=== PATIENT | male | born 1965 | race Caucasian/White ===

== ENCOUNTER 2021-11-04 16:53 | Inpatient (IN) | payer MEDICARE, MEDICAID ==
[~2021-11-04] VITALS: Ht 188 cm; Wt 96.6 kg
[2021-11-04 17:58] LABS: EOSINOPHILS % (AUTO) 8.5 % (1.0-6.0); HEMATOCRIT 36.5 % (41-53); HEMOGLOBIN 12.5 g/dL (13.5-17.5); LYMPHOCYTES # (AUTO) 1.4 K/uL (1.0-4.8); LYMPHOCYTES % (AUTO) 23.9 % (22.0-44.0); MEAN CORPUSCULAR HEMOGLOBIN 33.1 pg (26.0-34.0); MEAN CORPUSCULAR HGB CONC 34.1 G/dL (31.0-37.0); MEAN CORPUSCULAR VOLUME 97 fL (80-100); MONOCYTES # (AUTO) 0.4 K/uL (0.1-1.0); MONOCYTES % (AUTO) 6.2 % (2.0-9.0); NEUTROPHILS # (AUTO) 3.5 K/uL (1.8-7.7); NEUTROPHILS % (AUTO) 60.4 % (40.0-70.0); PLATELET COUNT (AUTO) 217 K/uL (150-450); RED BLOOD CELL COUNT(AUTO) 3.77 MIL/uL (4.50-5.90); RED CELL DISTRIBUTION WIDTH 17.2 % (11.5-14.5)
[2021-11-04 18:00] LABS: ANION GAP 7 mmol/L (8-16); CALCIUM, TOTAL 9.1 mg/dL (8.8-10.5); CARBON DIOXIDE 26 mmol/L (22-29); CHLORIDE 103 mmol/L (98-107); CREATININE 1.29 mg/dL (0.60-1.30); GLOMERULAR FILTR. RATE CALC 58 mL/min (>60); GLUCOSE,RANDOM 353 mg/dL (70-110); POTASSIUM 3.9 mmol/L (3.5-5.1); SODIUM SERUM 136 mmol/L (136-145); UREA NITROGEN, BLOOD 11 mg/dL (7-18)
[2021-11-04 18:06] LABS: ALANINE AMINOTRANSFERASE 16 U/L (12-78); ALBUMIN 3.5 g/dL (3.4-5.0); ALKALINE PHOSPHATASE 111 U/L (46-116); ASPARTATE AMINOTRANSFERASE 7 U/L (15-37); BILIRUBIN,TOTAL 0.2 mg/dL (0.1-1.0); TOTAL PROTEIN, SERUM 6.8 g/dL (6.4-8.2)
[2021-11-04 18:20] LABS: AMPHET/METH SCREEN,URINE NEGATIVE (NEGATIVE); BARBITURATE SCREEN, URINE NEGATIVE (NEGATIVE); BENZODIAZEPINES SCREEN,URINE NEGATIVE (NEGATIVE); CANNABINOID SCREEN,URINE NEGATIVE (NEGATIVE); COCAINE SCREEN,URINE NEGATIVE (NEGATIVE); METHADONE SCREEN, URINE NEGATIVE (NEGATIVE); OPIATE SCREEN,URINE NEGATIVE (NEGATIVE); PHENCYCLIDINE SCREEN,URINE NEGATIVE (NEGATIVE)
[2021-11-04] MEDS ORDERED: INSULIN LISPRO 100 UNITS/ML SQ ONE (19:30)
[2021-11-04 19:43] LABS: LITHIUM 0.37 mmol/L (0.60-1.20)
[2021-11-04] MEDS: QUEtiapine FUMARATE 25 MG TABLET PO PRN (19:51)
[2021-11-04 20:05] LABS: COVID AG,FIA SOURCE NASAL SWAB
[2021-11-04 20:51] LABS: GLUCOSE,POINT OF CARE 330 MG/DL (70-110)
[2021-11-04] MEDS ORDERED: NICOTINE 14 MG/24 HOUR PATCH TD ONE (21:45)
[2021-11-04 21:52] VITALS: BP 138/76
[2021-11-04] MEDS ORDERED: NICOTINE 14 MG/24 HOUR PATCH TD PRN (22:00)
[2021-11-04] MEDS ORDERED: INSULIN GLARGINE,HUM.REC.ANLOG 100 UNITS/ML SQ ONE (22:00)
[2021-11-05 02:00] VITALS: BP 144/81
[2021-11-05] MEDS: ZOLPIDEM TARTRATE 10 MG TABLET PO PRN ×2 (02:01→23:45)
[2021-11-05] MEDS ORDERED: ACETAMINOPHEN 325 MG TABLET PO PRN ×2 (05:45→06:30)
[2021-11-05] MEDS ORDERED: ALBUTEROL SULFATE HFA 90 MCG/PUFF 8 GM INHALER IH PRN (06:30)
[2021-11-05] MEDS ORDERED: LOPERAMIDE HCL 2 MG CAPSULE PO PRN (06:30)
[2021-11-05] MEDS ORDERED: IBUPROFEN 400 MG TABLET PO PRN (06:30)
[2021-11-05] MEDS ORDERED: MAGNESIUM HYDROXIDE SUSPENSION 30 ML UDCUP PO PRN (06:30)
[2021-11-05] MEDS ORDERED: CloNIDine HCL 0.1 MG TABLET PO PRN (06:30)
[2021-11-05] MEDS ORDERED: DOCUSATE SODIUM 100 MG CAPSULE PO PRN (06:30)
[2021-11-05] MEDS ORDERED: GuaiFENesin/D-METHORPHAN [SUGAR-FREE] 200-20MG/10 ML SYRUP UDCUP PO PRN (06:30)
[2021-11-05] MEDS ORDERED: PETROLATUM,WHITE 28 GM JELLY TP PRN (06:30)
[2021-11-05 08:56] VITALS: BP 157/86
[2021-11-05] MEDS: NICOTINE 14 MG/24 HOUR PATCH TD PRN (09:12)
[2021-11-05 09:16] LABS: GLUCOMETER DEV NAME(LOC) 3E.I 2; GLUCOSE,POINT OF CARE 331 MG/DL (70-110)
[2021-11-05] MEDS: QUEtiapine FUMARATE 25 MG TABLET PO PRN ×2 (10:03→20:44)
[2021-11-05 10:06] LABS: GLUCOMETER DEV NAME(LOC) 3EX.; GLUCOSE,POINT OF CARE 129 MG/DL (70-110)
[2021-11-05] MEDS: INSULIN GLARGINE,HUM.REC.ANLOG 100 UNITS/ML SQ SCH ×2 (11:00→17:16)
[2021-11-05] MEDS ORDERED: ChlorproMAZINE HCL 50 MG TABLET PO ONE (13:30)
[2021-11-05] MEDS ORDERED: DiphenhydrAMINE HCL 25 MG CAPSULE PO ONE (13:30)
[2021-11-05] MEDS: LITHIUM CARBONATE 450 MG ER TABLET PO SCH (16:29)
[2021-11-05] MEDS: QUEtiapine FUMARATE 200 MG TABLET PO SCH (16:29)
[2021-11-05 16:31] LABS: GLUCOMETER DEV NAME(LOC) 3E.I 2; GLUCOSE,POINT OF CARE 253 MG/DL (70-110)
[2021-11-05] MEDS ORDERED: HALOPERIDOL LACTATE 5 MG/ML VIAL ONE (17:00)
[2021-11-05] MEDS ORDERED: NICOTINE 14 MG/24 HOUR PATCH TD ONE (17:00)
[2021-11-05] MEDS ORDERED: DiphenhydrAMINE HCL 50 MG/ML VIAL ONE (17:00)
[2021-11-05] MEDS ORDERED: DiphenhydrAMINE HCL 50 MG/ML VIAL IM ONE (17:00)
[2021-11-05] MEDS ORDERED: LORazepam 2 MG/ML VIAL ONE (17:00)
[2021-11-05] MEDS ORDERED: HALOPERIDOL LACTATE 5 MG/ML VIAL IM ONE (17:00)
[2021-11-05] MEDS ORDERED: LORazepam 2 MG/ML VIAL IM ONE (17:00)
[2021-11-05 18:15] VITALS: BP 150/82
[2021-11-06] MEDS: QUEtiapine FUMARATE 25 MG TABLET PO PRN ×4 (01:20→22:45)
[2021-11-06] MEDS: NICOTINE 14 MG/24 HOUR PATCH TD PRN (05:14)
[2021-11-06] MEDS ORDERED: DEXTROSE 50%-WATER 25 GM/50 ML SYG IVP PRN (07:00)
[2021-11-06] MEDS: INSULIN LISPRO 100 UNITS/ML SQ PRN ×2 (07:12→11:33)
[2021-11-06 07:26] LABS: GLUCOMETER DEV NAME(LOC) 3EX.; GLUCOSE,POINT OF CARE 209 MG/DL (70-110)
[2021-11-06] MEDS: QUEtiapine FUMARATE 200 MG TABLET PO SCH ×3 (08:29→16:01)
[2021-11-06] MEDS: LITHIUM CARBONATE 450 MG ER TABLET PO SCH ×2 (08:29→16:01)
[2021-11-06 09:00] VITALS: BP 153/87
[2021-11-06] MEDS: INSULIN GLARGINE,HUM.REC.ANLOG 100 UNITS/ML SQ SCH ×2 (09:20→17:00)
[2021-11-06] MEDS ORDERED: DiphenhydrAMINE HCL 50 MG/ML VIAL IM ONE (16:00)
[2021-11-06] MEDS ORDERED: ChlorproMAZINE HCL 50 MG/2 ML AMP IM ONE (16:00)
[2021-11-06] MEDS ORDERED: ChlorproMAZINE HCL 50 MG/2 ML AMP ONE (16:03)
[2021-11-06] MEDS ORDERED: DiphenhydrAMINE HCL 50 MG/ML VIAL ONE (16:03)
[2021-11-06 16:19] VITALS: BP 140/82
[2021-11-06] MEDS: ZOLPIDEM TARTRATE 10 MG TABLET PO PRN (22:45)
[2021-11-07] MEDS: QUEtiapine FUMARATE 25 MG TABLET PO PRN ×4 (03:05→20:00)
[2021-11-07] MEDS: NICOTINE 14 MG/24 HOUR PATCH TD PRN (06:10)
[2021-11-07 06:11] LABS: GLUCOMETER DEV NAME(LOC) 3E.C; GLUCOSE,POINT OF CARE 303 MG/DL (70-110)
[2021-11-07] MEDS: INSULIN LISPRO 100 UNITS/ML SQ PRN ×4 (06:39→20:57)
[2021-11-07 07:23] LABS: CHOL/HDL RATIO 3.3 (4.2-7.3)
[2021-11-07 07:28] LABS: HEMOGLOBIN A1C 6.6 % (3.8-5.6)
[2021-11-07] MEDS: LITHIUM CARBONATE 450 MG ER TABLET PO SCH ×2 (08:11→16:25)
[2021-11-07] MEDS: QUEtiapine FUMARATE 200 MG TABLET PO SCH ×3 (08:11→16:25)
[2021-11-07] MEDS: INSULIN GLARGINE,HUM.REC.ANLOG 100 UNITS/ML SQ SCH ×2 (08:13→17:16)
[2021-11-07 08:15] VITALS: BP 136/89
[2021-11-07 11:51] LABS: GLUCOMETER DEV NAME(LOC) 3E.C; GLUCOSE,POINT OF CARE 356 MG/DL (70-110)
[2021-11-07 15:56] LABS: GLUCOMETER DEV NAME(LOC) 3E.C; GLUCOSE,POINT OF CARE 271 MG/DL (70-110)
[2021-11-07] MEDS: ZOLPIDEM TARTRATE 10 MG TABLET PO PRN (20:34)
[2021-11-07 20:46] LABS: GLUCOMETER DEV NAME(LOC) 3E.C; GLUCOSE,POINT OF CARE 411 MG/DL (70-110)
[2021-11-08] MEDS: QUEtiapine FUMARATE 25 MG TABLET PO PRN ×6 (00:04→21:47)
[2021-11-08 05:51] LABS: GLUCOMETER DEV NAME(LOC) 3E.C; GLUCOSE,POINT OF CARE 324 MG/DL (70-110)
[2021-11-08] MEDS: NICOTINE 14 MG/24 HOUR PATCH TD PRN (06:17)
[2021-11-08] MEDS: INSULIN LISPRO 100 UNITS/ML SQ PRN ×4 (06:56→21:08)
[2021-11-08 08:09] VITALS: BP 136/85
[2021-11-08] MEDS: LITHIUM CARBONATE 450 MG ER TABLET PO SCH ×2 (10:54→16:14)
[2021-11-08] MEDS: QUEtiapine FUMARATE 200 MG TABLET PO SCH ×3 (10:54→16:15)
[2021-11-08] MEDS: INSULIN GLARGINE,HUM.REC.ANLOG 100 UNITS/ML SQ SCH ×2 (11:07→16:50)
[2021-11-08 11:16] LABS: GLUCOMETER DEV NAME(LOC) 3E.C; GLUCOSE,POINT OF CARE 357 MG/DL (70-110)
[2021-11-08] MEDS: ONDANSETRON HCL 4 MG TABLET PO PRN (12:08)
[2021-11-08] MEDS: MAG HYDROX/AL HYDROX/SIMETH ES 30 ML SUSPENSION UDCUP PO PRN (12:08)
[2021-11-08 15:51] LABS: GLUCOMETER DEV NAME(LOC) 3E.C; GLUCOSE,POINT OF CARE 297 MG/DL (70-110)
[2021-11-08 20:21] LABS: GLUCOMETER DEV NAME(LOC) 3E.C; GLUCOSE,POINT OF CARE 239 MG/DL (70-110)
[2021-11-08] MEDS: ZOLPIDEM TARTRATE 10 MG TABLET PO PRN (21:34)
[2021-11-09 05:46] LABS: GLUCOMETER DEV NAME(LOC) 3E.C; GLUCOSE,POINT OF CARE 250 MG/DL (70-110)
[2021-11-09] MEDS: NICOTINE 14 MG/24 HOUR PATCH TD PRN (06:26)
[2021-11-09] MEDS: INSULIN LISPRO 100 UNITS/ML SQ PRN ×4 (06:55→21:09)
[2021-11-09 08:07] VITALS: BP 124/88
[2021-11-09] MEDS: LITHIUM CARBONATE 450 MG ER TABLET PO SCH ×2 (08:12→16:10)
[2021-11-09] MEDS: QUEtiapine FUMARATE 200 MG TABLET PO SCH ×3 (08:12→16:10)
[2021-11-09] MEDS: INSULIN GLARGINE,HUM.REC.ANLOG 100 UNITS/ML SQ SCH ×2 (08:16→16:55)
[2021-11-09] MEDS: QUEtiapine FUMARATE 25 MG TABLET PO PRN ×2 (10:20→17:30)
[2021-11-09 11:36] LABS: GLUCOMETER DEV NAME(LOC) 3E.C; GLUCOSE,POINT OF CARE 297 MG/DL (70-110)
[2021-11-09 15:57] LABS: GLUCOMETER DEV NAME(LOC) 3E.C; GLUCOSE,POINT OF CARE 216 MG/DL (70-110)
[2021-11-09 16:13] VITALS: BP 134/87
[2021-11-09] MEDS: ZOLPIDEM TARTRATE 10 MG TABLET PO PRN (20:30)
[2021-11-09 21:16] LABS: GLUCOMETER DEV NAME(LOC) 3E.C; GLUCOSE,POINT OF CARE 219 MG/DL (70-110)
[2021-11-10] MEDS: QUEtiapine FUMARATE 25 MG TABLET PO PRN ×2 (00:41→18:28)
[2021-11-10 05:31] LABS: GLUCOMETER DEV NAME(LOC) 3E.C; GLUCOSE,POINT OF CARE 212 MG/DL (70-110)
[2021-11-10] MEDS: INSULIN LISPRO 100 UNITS/ML SQ PRN ×4 (07:00→21:00)
[2021-11-10 08:09] LABS: COVID AG,FIA SOURCE NASAL SWAB
[2021-11-10 08:14] VITALS: BP 138/91
[2021-11-10] MEDS: NICOTINE 14 MG/24 HOUR PATCH TD PRN (09:00)
[2021-11-10] MEDS: QUEtiapine FUMARATE 200 MG TABLET PO SCH ×3 (09:03→16:05)
[2021-11-10] MEDS: LITHIUM CARBONATE 450 MG ER TABLET PO SCH ×2 (09:03→16:05)
[2021-11-10] MEDS: INSULIN GLARGINE,HUM.REC.ANLOG 100 UNITS/ML SQ SCH ×2 (09:05→16:49)
[2021-11-10 11:35] LABS: GLUCOMETER DEV NAME(LOC) 3E.C; GLUCOSE,POINT OF CARE 281 MG/DL (70-110)
[2021-11-10 16:07] VITALS: BP 147/79
[2021-11-10 16:16] LABS: GLUCOMETER DEV NAME(LOC) 3E.C; GLUCOSE,POINT OF CARE 367 MG/DL (70-110)
[2021-11-10] MEDS: ZOLPIDEM TARTRATE 10 MG TABLET PO PRN (20:09)
[2021-11-10 20:26] LABS: GLUCOMETER DEV NAME(LOC) 3E.C; GLUCOSE,POINT OF CARE 303 MG/DL (70-110)
[2021-11-11 01:00] VITALS: BP 139/90
[2021-11-11] MEDS: QUEtiapine FUMARATE 25 MG TABLET PO PRN ×2 (01:03→19:56)
[2021-11-11 06:21] LABS: GLUCOMETER DEV NAME(LOC) 3E.C; GLUCOSE,POINT OF CARE 308 MG/DL (70-110)
[2021-11-11] MEDS: INSULIN LISPRO 100 UNITS/ML SQ PRN ×4 (06:40→21:18)
[2021-11-11] MEDS: NICOTINE 14 MG/24 HOUR PATCH TD PRN (06:42)
[2021-11-11 08:00] VITALS: BP 151/99
[2021-11-11] MEDS: LITHIUM CARBONATE 450 MG ER TABLET PO SCH ×2 (10:13→16:31)
[2021-11-11] MEDS: QUEtiapine FUMARATE 200 MG TABLET PO SCH ×3 (10:14→16:31)
[2021-11-11] MEDS: INSULIN GLARGINE,HUM.REC.ANLOG 100 UNITS/ML SQ SCH ×2 (11:11→16:29)
[2021-11-11 12:11] LABS: GLUCOMETER DEV NAME(LOC) 3E.C; GLUCOSE,POINT OF CARE 351 MG/DL (70-110)
[2021-11-11 16:20] VITALS: BP 148/91
[2021-11-11 16:55] LABS: GLUCOMETER DEV NAME(LOC) 3E.C; GLUCOSE,POINT OF CARE 327 MG/DL (70-110)
[2021-11-11 17:16] VITALS: BP 148/91
[2021-11-11] MEDS: ZOLPIDEM TARTRATE 10 MG TABLET PO PRN (20:21)
[2021-11-11 21:16] LABS: GLUCOMETER DEV NAME(LOC) 3E.C; GLUCOSE,POINT OF CARE 340 MG/DL (70-110)
[2021-11-12 01:24] VITALS: BP 146/87
[2021-11-12] MEDS: QUEtiapine FUMARATE 25 MG TABLET PO PRN ×2 (01:24→20:36)
[2021-11-12] MEDS: INSULIN LISPRO 100 UNITS/ML SQ PRN ×3 (06:49→20:37)
[2021-11-12 06:51] LABS: GLUCOMETER DEV NAME(LOC) 3E.C; GLUCOSE,POINT OF CARE 359 MG/DL (70-110)
[2021-11-12 08:12] VITALS: BP 147/81
[2021-11-12] MEDS: QUEtiapine FUMARATE 200 MG TABLET PO SCH ×3 (08:36→16:03)
[2021-11-12] MEDS: LITHIUM CARBONATE 450 MG ER TABLET PO SCH ×2 (08:36→16:03)
[2021-11-12] MEDS: INSULIN GLARGINE,HUM.REC.ANLOG 100 UNITS/ML SQ SCH ×2 (08:49→16:19)
[2021-11-12 11:06] LABS: GLUCOMETER DEV NAME(LOC) 3E.C; GLUCOSE,POINT OF CARE 383 MG/DL (70-110)
[2021-11-12] MEDS ORDERED: INSULIN LISPRO 100 UNITS/ML SQ ONE (16:15)
[2021-11-12 16:17] LABS: GLUCOMETER DEV NAME(LOC) 3E.C; GLUCOSE,POINT OF CARE 413 MG/DL (70-110)
[2021-11-12 16:43] VITALS: BP 154/90
[2021-11-12] MEDS: ZOLPIDEM TARTRATE 10 MG TABLET PO PRN (20:36)
[2021-11-12 20:46] LABS: GLUCOMETER DEV NAME(LOC) 3E.C; GLUCOSE,POINT OF CARE 281 MG/DL (70-110)
[2021-11-13] MEDS: QUEtiapine FUMARATE 25 MG TABLET PO PRN ×4 (01:59→12:11)
[2021-11-13 05:21] LABS: GLUCOMETER DEV NAME(LOC) 3E.C; GLUCOSE,POINT OF CARE 296 MG/DL (70-110)
[2021-11-13] MEDS: INSULIN LISPRO 100 UNITS/ML SQ PRN ×4 (06:54→20:21)
[2021-11-13 08:07] VITALS: BP 140/83
[2021-11-13] MEDS: INSULIN GLARGINE,HUM.REC.ANLOG 100 UNITS/ML SQ SCH ×2 (08:33→17:09)
[2021-11-13] MEDS: LITHIUM CARBONATE 450 MG ER TABLET PO SCH ×2 (09:00→16:25)
[2021-11-13] MEDS: QUEtiapine FUMARATE 200 MG TABLET PO SCH ×3 (09:00→16:25)
[2021-11-13 11:36] LABS: GLUCOMETER DEV NAME(LOC) 3E.C; GLUCOSE,POINT OF CARE 387 MG/DL (70-110)
[2021-11-13 16:05] VITALS: BP 140/89
[2021-11-13] MEDS: BENZTROPINE MESYLATE 1 MG TABLET PO SCH (16:25)
[2021-11-13] MEDS: MAG HYDROX/AL HYDROX/SIMETH ES 30 ML SUSPENSION UDCUP PO PRN (16:34)
[2021-11-13 16:46] LABS: GLUCOMETER DEV NAME(LOC) 3E.C; GLUCOSE,POINT OF CARE 346 MG/DL (70-110)
[2021-11-13] MEDS: ChlorproMAZINE HCL 50 MG TABLET PO SCH (20:07)
[2021-11-13] MEDS: ZOLPIDEM TARTRATE 10 MG TABLET PO PRN (20:47)
[2021-11-13 20:56] LABS: GLUCOMETER DEV NAME(LOC) 3E.C; GLUCOSE,POINT OF CARE 300 MG/DL (70-110)
[2021-11-14 05:46] LABS: GLUCOMETER DEV NAME(LOC) 3E.C; GLUCOSE,POINT OF CARE 317 MG/DL (70-110)
[2021-11-14] MEDS: INSULIN LISPRO 100 UNITS/ML SQ PRN ×4 (06:38→20:55)
[2021-11-14 08:14] VITALS: BP 159/77
[2021-11-14] MEDS: ChlorproMAZINE HCL 50 MG TABLET PO SCH ×2 (09:03→20:52)
[2021-11-14] MEDS: LITHIUM CARBONATE 450 MG ER TABLET PO SCH ×2 (09:03→16:22)
[2021-11-14] MEDS: QUEtiapine FUMARATE 200 MG TABLET PO SCH ×3 (09:12→16:22)
[2021-11-14] MEDS: BENZTROPINE MESYLATE 1 MG TABLET PO SCH ×2 (09:12→16:22)
[2021-11-14] MEDS: INSULIN GLARGINE,HUM.REC.ANLOG 100 UNITS/ML SQ SCH ×2 (09:39→16:45)
[2021-11-14] MEDS: NICOTINE 14 MG/24 HOUR PATCH TD PRN (11:09)
[2021-11-14 12:01] LABS: GLUCOMETER DEV NAME(LOC) 3E.C; GLUCOSE,POINT OF CARE 395 MG/DL (70-110)
[2021-11-14] MEDS: QUEtiapine FUMARATE 25 MG TABLET PO PRN ×2 (14:04→19:00)
[2021-11-14 16:36] LABS: GLUCOMETER DEV NAME(LOC) 3E.C; GLUCOSE,POINT OF CARE 364 MG/DL (70-110)
[2021-11-14] MEDS: ZOLPIDEM TARTRATE 10 MG TABLET PO PRN (20:52)
[2021-11-14 21:01] LABS: GLUCOMETER DEV NAME(LOC) 3E.C; GLUCOSE,POINT OF CARE 342 MG/DL (70-110)
[2021-11-15 06:20] LABS: GLUCOMETER DEV NAME(LOC) 3E.C; GLUCOSE,POINT OF CARE 309 MG/DL (70-110)
[2021-11-15] MEDS: INSULIN LISPRO 100 UNITS/ML SQ PRN ×4 (06:40→20:48)
[2021-11-15] MEDS: LITHIUM CARBONATE 450 MG ER TABLET PO SCH ×2 (08:34→16:18)
[2021-11-15] MEDS: NICOTINE 14 MG/24 HOUR PATCH TD PRN (08:34)
[2021-11-15] MEDS: BENZTROPINE MESYLATE 1 MG TABLET PO SCH ×2 (08:34→16:18)
[2021-11-15] MEDS: QUEtiapine FUMARATE 200 MG TABLET PO SCH ×3 (08:34→16:18)
[2021-11-15] MEDS: INSULIN GLARGINE,HUM.REC.ANLOG 100 UNITS/ML SQ SCH ×2 (09:07→16:50)
[2021-11-15 09:50] VITALS: BP 182/106
[2021-11-15] MEDS: QUEtiapine FUMARATE 25 MG TABLET PO PRN ×2 (11:18→22:38)
[2021-11-15 11:46] LABS: GLUCOMETER DEV NAME(LOC) 3E.C; GLUCOSE,POINT OF CARE 370 MG/DL (70-110)
[2021-11-15 16:26] LABS: GLUCOMETER DEV NAME(LOC) 3E.C; GLUCOSE,POINT OF CARE 390 MG/DL (70-110)
[2021-11-15] MEDS: ChlorproMAZINE HCL 50 MG TABLET PO SCH (20:10)
[2021-11-15] MEDS: ZOLPIDEM TARTRATE 10 MG TABLET PO PRN (20:16)
[2021-11-15 23:46] LABS: GLUCOMETER DEV NAME(LOC) 3E.C; GLUCOSE,POINT OF CARE 210 MG/DL (70-110)
[2021-11-16] MEDS: MAG HYDROX/AL HYDROX/SIMETH ES 30 ML SUSPENSION UDCUP PO PRN ×2 (02:55→22:27)
[2021-11-16 06:01] LABS: GLUCOMETER DEV NAME(LOC) 3E.C; GLUCOSE,POINT OF CARE 324 MG/DL (70-110)
[2021-11-16] MEDS: INSULIN LISPRO 100 UNITS/ML SQ PRN ×4 (06:44→21:35)
[2021-11-16] MEDS: LITHIUM CARBONATE 450 MG ER TABLET PO SCH ×2 (09:33→16:07)
[2021-11-16] MEDS: BENZTROPINE MESYLATE 1 MG TABLET PO SCH ×2 (09:33→16:07)
[2021-11-16] MEDS: QUEtiapine FUMARATE 200 MG TABLET PO SCH ×3 (09:33→16:07)
[2021-11-16] MEDS: INSULIN GLARGINE,HUM.REC.ANLOG 100 UNITS/ML SQ SCH ×2 (09:36→17:36)
[2021-11-16] MEDS: NICOTINE 14 MG/24 HOUR PATCH TD PRN (09:48)
[2021-11-16 10:42] VITALS: BP 158/93
[2021-11-16 12:01] LABS: GLUCOMETER DEV NAME(LOC) 3E.C; GLUCOSE,POINT OF CARE 333 MG/DL (70-110)
[2021-11-16 16:16] LABS: GLUCOMETER DEV NAME(LOC) 3E.C; GLUCOSE,POINT OF CARE 184 MG/DL (70-110)
[2021-11-16] MEDS: ChlorproMAZINE HCL 50 MG TABLET PO SCH (20:16)
[2021-11-16 20:26] LABS: GLUCOMETER DEV NAME(LOC) 3E.C; GLUCOSE,POINT OF CARE 291 MG/DL (70-110)
[2021-11-16] MEDS: ZOLPIDEM TARTRATE 10 MG TABLET PO PRN (21:40)
[2021-11-17 03:09] LABS: COVID AG,FIA SOURCE NASAL SWAB
[2021-11-17] MEDS: INSULIN LISPRO 100 UNITS/ML SQ PRN ×4 (06:50→20:52)
[2021-11-17 07:06] LABS: GLUCOMETER DEV NAME(LOC) 3E.C; GLUCOSE,POINT OF CARE 324 MG/DL (70-110)
[2021-11-17] MEDS: QUEtiapine FUMARATE 200 MG TABLET PO SCH ×3 (07:51→16:29)
[2021-11-17] MEDS: LITHIUM CARBONATE 450 MG ER TABLET PO SCH ×2 (07:51→16:29)
[2021-11-17] MEDS: BENZTROPINE MESYLATE 1 MG TABLET PO SCH ×2 (07:51→16:29)
[2021-11-17] MEDS: INSULIN GLARGINE,HUM.REC.ANLOG 100 UNITS/ML SQ SCH ×2 (08:37→17:03)
[2021-11-17 12:11] LABS: GLUCOMETER DEV NAME(LOC) 3E.C; GLUCOSE,POINT OF CARE 351 MG/DL (70-110)
[2021-11-17 16:36] LABS: GLUCOMETER DEV NAME(LOC) 3E.C; GLUCOSE,POINT OF CARE 295 MG/DL (70-110)
[2021-11-17] MEDS: QUEtiapine FUMARATE 25 MG TABLET PO PRN (18:27)
[2021-11-17] MEDS: MAG HYDROX/AL HYDROX/SIMETH ES 30 ML SUSPENSION UDCUP PO PRN (19:44)
[2021-11-17] MEDS: ChlorproMAZINE HCL 50 MG TABLET PO SCH (20:24)
[2021-11-17 20:36] LABS: GLUCOMETER DEV NAME(LOC) 3E.C; GLUCOSE,POINT OF CARE 287 MG/DL (70-110)
[2021-11-17] MEDS: ZOLPIDEM TARTRATE 10 MG TABLET PO PRN (22:58)
[2021-11-18] MEDS: QUEtiapine FUMARATE 25 MG TABLET PO PRN (01:29)
[2021-11-18 06:26] LABS: GLUCOMETER DEV NAME(LOC) 3E.C; GLUCOSE,POINT OF CARE 315 MG/DL (70-110)
[2021-11-18] MEDS: INSULIN LISPRO 100 UNITS/ML SQ PRN ×4 (06:46→21:15)
[2021-11-18 08:05] VITALS: BP 159/90
[2021-11-18] MEDS: BENZTROPINE MESYLATE 1 MG TABLET PO SCH ×2 (08:22→16:44)
[2021-11-18] MEDS: LITHIUM CARBONATE 450 MG ER TABLET PO SCH ×2 (08:22→16:44)
[2021-11-18] MEDS: QUEtiapine FUMARATE 200 MG TABLET PO SCH ×3 (08:23→16:46)
[2021-11-18] MEDS: INSULIN GLARGINE,HUM.REC.ANLOG 100 UNITS/ML SQ SCH ×2 (08:26→16:46)
[2021-11-18 11:26] LABS: GLUCOMETER DEV NAME(LOC) 3E.C; GLUCOSE,POINT OF CARE 339 MG/DL (70-110)
[2021-11-18 15:35] LABS: GLUCOMETER DEV NAME(LOC) 3E.C; GLUCOSE,POINT OF CARE 235 MG/DL (70-110)
[2021-11-18] MEDS: MAG HYDROX/AL HYDROX/SIMETH ES 30 ML SUSPENSION UDCUP PO PRN (19:30)
[2021-11-18] MEDS: ZOLPIDEM TARTRATE 10 MG TABLET PO PRN (20:35)
[2021-11-18] MEDS: ChlorproMAZINE HCL 50 MG TABLET PO SCH (20:35)
[2021-11-18 20:46] LABS: GLUCOMETER DEV NAME(LOC) 3E.C; GLUCOSE,POINT OF CARE 257 MG/DL (70-110)
[2021-11-19 06:31] LABS: GLUCOMETER DEV NAME(LOC) 3E.C; GLUCOSE,POINT OF CARE 248 MG/DL (70-110)
[2021-11-19] MEDS: INSULIN LISPRO 100 UNITS/ML SQ PRN ×4 (06:39→20:42)
[2021-11-19] MEDS: QUEtiapine FUMARATE 200 MG TABLET PO SCH ×3 (08:00→16:15)
[2021-11-19] MEDS: LITHIUM CARBONATE 450 MG ER TABLET PO SCH ×2 (08:00→16:15)
[2021-11-19] MEDS: BENZTROPINE MESYLATE 1 MG TABLET PO SCH ×2 (08:00→16:15)
[2021-11-19 08:02] VITALS: BP 150/99
[2021-11-19] MEDS: INSULIN GLARGINE,HUM.REC.ANLOG 100 UNITS/ML SQ SCH ×2 (08:07→17:00)
[2021-11-19] MEDS: QUEtiapine FUMARATE 25 MG TABLET PO PRN ×2 (10:24→19:00)
[2021-11-19 11:41] LABS: GLUCOMETER DEV NAME(LOC) 3E.C; GLUCOSE,POINT OF CARE 309 MG/DL (70-110)
[2021-11-19 16:26] LABS: GLUCOMETER DEV NAME(LOC) 3E.C; GLUCOSE,POINT OF CARE 282 MG/DL (70-110)
[2021-11-19] MEDS: ChlorproMAZINE HCL 50 MG TABLET PO SCH (20:38)
[2021-11-19 20:50] LABS: GLUCOMETER DEV NAME(LOC) 3E.C; GLUCOSE,POINT OF CARE 143 MG/DL (70-110)
[2021-11-20] MEDS: INSULIN LISPRO 100 UNITS/ML SQ PRN ×4 (06:31→20:26)
[2021-11-20 06:36] LABS: GLUCOMETER DEV NAME(LOC) 3E.C; GLUCOSE,POINT OF CARE 251 MG/DL (70-110)
[2021-11-20 08:00] VITALS: BP 159/101
[2021-11-20] MEDS: BENZTROPINE MESYLATE 1 MG TABLET PO SCH ×2 (08:06→16:12)
[2021-11-20] MEDS: QUEtiapine FUMARATE 200 MG TABLET PO SCH ×3 (08:06→16:12)
[2021-11-20] MEDS: LITHIUM CARBONATE 450 MG ER TABLET PO SCH ×2 (08:06→16:12)
[2021-11-20] MEDS: INSULIN GLARGINE,HUM.REC.ANLOG 100 UNITS/ML SQ SCH ×2 (08:09→16:49)
[2021-11-20] MEDS: QUEtiapine FUMARATE 25 MG TABLET PO PRN ×2 (11:56→20:16)
[2021-11-20 12:06] LABS: GLUCOMETER DEV NAME(LOC) 3E.C; GLUCOSE,POINT OF CARE 313 MG/DL (70-110)
[2021-11-20] MEDS: ChlorproMAZINE HCL 50 MG TABLET PO SCH (16:13)
[2021-11-20 16:45] LABS: GLUCOMETER DEV NAME(LOC) 3E.C; GLUCOSE,POINT OF CARE 242 MG/DL (70-110)
[2021-11-20] MEDS: ZOLPIDEM TARTRATE 10 MG TABLET PO PRN (20:16)
[2021-11-20 20:36] LABS: GLUCOMETER DEV NAME(LOC) 3E.C; GLUCOSE,POINT OF CARE 199 MG/DL (70-110)
[2021-11-21 05:52] LABS: GLUCOMETER DEV NAME(LOC) 3E.C; GLUCOSE,POINT OF CARE 249 MG/DL (70-110)
[2021-11-21] MEDS: INSULIN LISPRO 100 UNITS/ML SQ PRN ×4 (06:41→20:56)
[2021-11-21] MEDS: LITHIUM CARBONATE 450 MG ER TABLET PO SCH ×2 (08:17→16:05)
[2021-11-21 08:19] VITALS: BP 142/92
[2021-11-21] MEDS: ChlorproMAZINE HCL 50 MG TABLET PO SCH ×2 (08:19→16:05)
[2021-11-21] MEDS: BENZTROPINE MESYLATE 1 MG TABLET PO SCH ×2 (08:19→16:05)
[2021-11-21] MEDS: QUEtiapine FUMARATE 200 MG TABLET PO SCH ×3 (08:19→16:04)
[2021-11-21] MEDS: INSULIN GLARGINE,HUM.REC.ANLOG 100 UNITS/ML SQ SCH ×2 (08:22→16:40)
[2021-11-21 11:46] LABS: GLUCOMETER DEV NAME(LOC) 3E.C; GLUCOSE,POINT OF CARE 232 MG/DL (70-110)
[2021-11-21] MEDS: MAG HYDROX/AL HYDROX/SIMETH ES 30 ML SUSPENSION UDCUP PO PRN (16:09)
[2021-11-21 16:36] LABS: GLUCOMETER DEV NAME(LOC) 3E.C; GLUCOSE,POINT OF CARE 274 MG/DL (70-110)
[2021-11-21] MEDS: ZOLPIDEM TARTRATE 10 MG TABLET PO PRN (20:58)
[2021-11-21] MEDS: QUEtiapine FUMARATE 25 MG TABLET PO PRN (20:58)
[2021-11-21 21:11] LABS: GLUCOMETER DEV NAME(LOC) 3E.C; GLUCOSE,POINT OF CARE 232 MG/DL (70-110)
[2021-11-22 05:22] LABS: GLUCOMETER DEV NAME(LOC) 3E.C; GLUCOSE,POINT OF CARE 302 MG/DL (70-110)
[2021-11-22] MEDS: INSULIN LISPRO 100 UNITS/ML SQ PRN ×4 (07:06→21:35)
[2021-11-22] MEDS: QUEtiapine FUMARATE 200 MG TABLET PO SCH ×3 (08:16→16:10)
[2021-11-22] MEDS: BENZTROPINE MESYLATE 1 MG TABLET PO SCH ×2 (08:16→16:10)
[2021-11-22] MEDS: LITHIUM CARBONATE 450 MG ER TABLET PO SCH ×2 (08:16→16:10)
[2021-11-22] MEDS: ChlorproMAZINE HCL 50 MG TABLET PO SCH ×2 (08:17→16:10)
[2021-11-22] MEDS: INSULIN GLARGINE,HUM.REC.ANLOG 100 UNITS/ML SQ SCH ×2 (08:18→17:22)
[2021-11-22 09:39] VITALS: BP 139/100
[2021-11-22 11:30] LABS: GLUCOMETER DEV NAME(LOC) 3E.C; GLUCOSE,POINT OF CARE 183 MG/DL (70-110)
[2021-11-22 16:30] VITALS: BP 134/96
[2021-11-22 16:41] LABS: GLUCOMETER DEV NAME(LOC) 3E.C; GLUCOSE,POINT OF CARE 176 MG/DL (70-110)
[2021-11-22] MEDS: QUEtiapine FUMARATE 25 MG TABLET PO PRN (20:32)
[2021-11-22 22:36] LABS: GLUCOMETER DEV NAME(LOC) 3E.C; GLUCOSE,POINT OF CARE 234 MG/DL (70-110)
[2021-11-23] MEDS: QUEtiapine FUMARATE 25 MG TABLET PO PRN ×3 (01:11→12:57)
[2021-11-23] MEDS: ZOLPIDEM TARTRATE 10 MG TABLET PO PRN ×2 (01:11→22:37)
[2021-11-23 06:25] LABS: GLUCOMETER DEV NAME(LOC) 3E.C; GLUCOSE,POINT OF CARE 236 MG/DL (70-110)
[2021-11-23] MEDS: INSULIN LISPRO 100 UNITS/ML SQ PRN ×4 (07:02→21:13)
[2021-11-23 08:21] VITALS: BP 145/79
[2021-11-23] MEDS: INSULIN GLARGINE,HUM.REC.ANLOG 100 UNITS/ML SQ SCH ×2 (09:10→17:41)
[2021-11-23] MEDS: ChlorproMAZINE HCL 50 MG TABLET PO SCH ×2 (09:11→16:24)
[2021-11-23] MEDS: LITHIUM CARBONATE 450 MG ER TABLET PO SCH ×2 (09:11→16:24)
[2021-11-23] MEDS: BENZTROPINE MESYLATE 1 MG TABLET PO SCH ×2 (09:11→16:24)
[2021-11-23] MEDS: QUEtiapine FUMARATE 200 MG TABLET PO SCH ×3 (09:11→16:24)
[2021-11-23 11:26] LABS: GLUCOMETER DEV NAME(LOC) 3E.C; GLUCOSE,POINT OF CARE 281 MG/DL (70-110)
[2021-11-23 16:06] VITALS: BP 132/78
[2021-11-23 17:10] LABS: GLUCOMETER DEV NAME(LOC) 3E.C; GLUCOSE,POINT OF CARE 273 MG/DL (70-110)
[2021-11-23 20:50] LABS: GLUCOMETER DEV NAME(LOC) 3E.C; GLUCOSE,POINT OF CARE 168 MG/DL (70-110)
[2021-11-24 05:51] LABS: GLUCOMETER DEV NAME(LOC) 3E.C; GLUCOSE,POINT OF CARE 297 MG/DL (70-110)
[2021-11-24] MEDS: INSULIN LISPRO 100 UNITS/ML SQ PRN ×4 (06:44→21:05)
[2021-11-24 07:13] LABS: COVID AG,FIA SOURCE NASAL SWAB
[2021-11-24 08:14] VITALS: BP 132/79
[2021-11-24] MEDS: QUEtiapine FUMARATE 200 MG TABLET PO SCH ×3 (08:22→16:52)
[2021-11-24] MEDS: BENZTROPINE MESYLATE 1 MG TABLET PO SCH ×2 (08:22→16:52)
[2021-11-24] MEDS: LITHIUM CARBONATE 450 MG ER TABLET PO SCH ×2 (08:22→16:52)
[2021-11-24] MEDS: ChlorproMAZINE HCL 50 MG TABLET PO SCH ×2 (08:24→16:52)
[2021-11-24] MEDS: INSULIN GLARGINE,HUM.REC.ANLOG 100 UNITS/ML SQ SCH ×2 (08:26→17:00)
[2021-11-24 10:51] LABS: GLUCOMETER DEV NAME(LOC) 3E.C; GLUCOSE,POINT OF CARE 277 MG/DL (70-110)
[2021-11-24] MEDS: LITHIUM CARBONATE 300 MG ER TABLET PO SCH ×2 (11:48→16:56)
[2021-11-24] MEDS: QUEtiapine FUMARATE 25 MG TABLET PO PRN (16:15)
[2021-11-24 16:26] VITALS: BP 140/82
[2021-11-24 16:31] LABS: GLUCOMETER DEV NAME(LOC) 3E.C; GLUCOSE,POINT OF CARE 288 MG/DL (70-110)
[2021-11-24 21:16] LABS: GLUCOMETER DEV NAME(LOC) 3E.C; GLUCOSE,POINT OF CARE 228 MG/DL (70-110)
[2021-11-25 06:13] LABS: GLUCOMETER DEV NAME(LOC) 3E.C; GLUCOSE,POINT OF CARE 204 MG/DL (70-110)
[2021-11-25] MEDS: INSULIN LISPRO 100 UNITS/ML SQ PRN ×3 (07:06→16:38)
[2021-11-25 08:00] VITALS: BP 157/103
[2021-11-25] MEDS: BENZTROPINE MESYLATE 1 MG TABLET PO SCH ×2 (08:16→16:06)
[2021-11-25] MEDS: LITHIUM CARBONATE 450 MG ER TABLET PO SCH ×2 (08:16→16:06)
[2021-11-25] MEDS: QUEtiapine FUMARATE 200 MG TABLET PO SCH ×3 (08:17→16:06)
[2021-11-25] MEDS: ChlorproMAZINE HCL 50 MG TABLET PO SCH ×2 (08:17→16:06)
[2021-11-25] MEDS: LITHIUM CARBONATE 300 MG ER TABLET PO SCH (08:17)
[2021-11-25] MEDS: INSULIN GLARGINE,HUM.REC.ANLOG 100 UNITS/ML SQ SCH ×2 (08:20→16:39)
[2021-11-25 12:51] LABS: GLUCOMETER DEV NAME(LOC) 3E.C; GLUCOSE,POINT OF CARE 255 MG/DL (70-110)
[2021-11-25 16:46] LABS: GLUCOMETER DEV NAME(LOC) 3E.C; GLUCOSE,POINT OF CARE 185 MG/DL (70-110)
[2021-11-25 17:10] VITALS: BP 168/107
[2021-11-25] MEDS: QUEtiapine FUMARATE 25 MG TABLET PO PRN (20:38)
[2021-11-25 20:51] LABS: GLUCOMETER DEV NAME(LOC) 3E.C; GLUCOSE,POINT OF CARE 140 MG/DL (70-110)
[2021-11-25] MEDS: ZOLPIDEM TARTRATE 10 MG TABLET PO PRN (21:40)
[2021-11-26 05:26] LABS: GLUCOMETER DEV NAME(LOC) 3E.C; GLUCOSE,POINT OF CARE 244 MG/DL (70-110)
[2021-11-26 08:09] VITALS: BP 155/85
[2021-11-26] MEDS: INSULIN GLARGINE,HUM.REC.ANLOG 100 UNITS/ML SQ SCH ×2 (09:26→16:48)
[2021-11-26] MEDS: ChlorproMAZINE HCL 50 MG TABLET PO SCH ×2 (09:26→15:58)
[2021-11-26] MEDS: QUEtiapine FUMARATE 200 MG TABLET PO SCH ×3 (09:27→15:57)
[2021-11-26] MEDS: BENZTROPINE MESYLATE 1 MG TABLET PO SCH ×2 (09:27→15:58)
[2021-11-26] MEDS: LITHIUM CARBONATE 450 MG ER TABLET PO SCH ×2 (10:32→16:11)
[2021-11-26 11:26] LABS: GLUCOMETER DEV NAME(LOC) 3E.C; GLUCOSE,POINT OF CARE 232 MG/DL (70-110)
[2021-11-26] MEDS: INSULIN LISPRO 100 UNITS/ML SQ PRN ×3 (13:23→20:14)
[2021-11-26 16:30] VITALS: BP 145/96
[2021-11-26 16:36] LABS: GLUCOMETER DEV NAME(LOC) 3E.C; GLUCOSE,POINT OF CARE 226 MG/DL (70-110)
[2021-11-26 19:19] VITALS: BP 145/96
[2021-11-26] MEDS: ZOLPIDEM TARTRATE 10 MG TABLET PO PRN (20:12)
[2021-11-26] MEDS: QUEtiapine FUMARATE 25 MG TABLET PO PRN (20:14)
[2021-11-26 20:31] LABS: GLUCOMETER DEV NAME(LOC) 3E.C; GLUCOSE,POINT OF CARE 237 MG/DL (70-110)
[2021-11-27 05:36] LABS: GLUCOMETER DEV NAME(LOC) 3E.C; GLUCOSE,POINT OF CARE 318 MG/DL (70-110)
[2021-11-27] MEDS: INSULIN LISPRO 100 UNITS/ML SQ PRN ×4 (06:39→21:15)
[2021-11-27] MEDS: BENZTROPINE MESYLATE 1 MG TABLET PO SCH ×2 (08:10→15:54)
[2021-11-27] MEDS: QUEtiapine FUMARATE 200 MG TABLET PO SCH ×3 (08:10→15:54)
[2021-11-27] MEDS: LITHIUM CARBONATE 450 MG ER TABLET PO SCH ×2 (08:10→15:54)
[2021-11-27] MEDS: ChlorproMAZINE HCL 50 MG TABLET PO SCH ×2 (08:10→15:54)
[2021-11-27 08:18] VITALS: BP 135/94
[2021-11-27] MEDS: INSULIN GLARGINE,HUM.REC.ANLOG 100 UNITS/ML SQ SCH ×2 (08:23→16:27)
[2021-11-27] MEDS: QUEtiapine FUMARATE 25 MG TABLET PO PRN ×3 (09:20→21:10)
[2021-11-27 11:36] LABS: GLUCOMETER DEV NAME(LOC) 3E.C; GLUCOSE,POINT OF CARE 239 MG/DL (70-110)
[2021-11-27 16:09] VITALS: BP 153/89
[2021-11-27 16:31] LABS: GLUCOMETER DEV NAME(LOC) 3E.C; GLUCOSE,POINT OF CARE 301 MG/DL (70-110)
[2021-11-27] MEDS: ZOLPIDEM TARTRATE 10 MG TABLET PO PRN (21:10)
[2021-11-27 21:21] LABS: GLUCOMETER DEV NAME(LOC) 3E.C; GLUCOSE,POINT OF CARE 195 MG/DL (70-110)
[2021-11-28 05:56] LABS: GLUCOMETER DEV NAME(LOC) 3E.C; GLUCOSE,POINT OF CARE 230 MG/DL (70-110)
[2021-11-28] MEDS: INSULIN LISPRO 100 UNITS/ML SQ PRN ×4 (06:36→20:56)
[2021-11-28] MEDS: ChlorproMAZINE HCL 50 MG TABLET PO SCH (07:39)
[2021-11-28] MEDS: LITHIUM CARBONATE 450 MG ER TABLET PO SCH ×2 (07:39→17:00)
[2021-11-28] MEDS: BENZTROPINE MESYLATE 1 MG TABLET PO SCH ×2 (07:40→17:00)
[2021-11-28] MEDS: QUEtiapine FUMARATE 200 MG TABLET PO SCH (07:40)
[2021-11-28] MEDS: INSULIN GLARGINE,HUM.REC.ANLOG 100 UNITS/ML SQ SCH ×2 (07:46→17:00)
[2021-11-28 08:10] VITALS: BP 142/88
[2021-11-28] MEDS: QUEtiapine FUMARATE 25 MG TABLET PO PRN (10:47)
[2021-11-28 11:01] LABS: GLUCOMETER DEV NAME(LOC) 3E.C; GLUCOSE,POINT OF CARE 280 MG/DL (70-110)
[2021-11-28 16:31] LABS: GLUCOMETER DEV NAME(LOC) 3E.C; GLUCOSE,POINT OF CARE 284 MG/DL (70-110)
[2021-11-28 17:05] VITALS: BP 115/82
[2021-11-28] MEDS: QUEtiapine FUMARATE 300 MG TABLET PO SCH (20:01)
[2021-11-28] MEDS: ZOLPIDEM TARTRATE 10 MG TABLET PO PRN (20:35)
[2021-11-28 21:01] LABS: GLUCOMETER DEV NAME(LOC) 3E.C; GLUCOSE,POINT OF CARE 162 MG/DL (70-110)
[2021-11-29 05:31] LABS: GLUCOMETER DEV NAME(LOC) 3E.C; GLUCOSE,POINT OF CARE 207 MG/DL (70-110)
[2021-11-29] MEDS: INSULIN LISPRO 100 UNITS/ML SQ PRN ×4 (06:47→20:48)
[2021-11-29] MEDS: LITHIUM CARBONATE 450 MG ER TABLET PO SCH ×2 (07:47→16:05)
[2021-11-29] MEDS: QUEtiapine FUMARATE 200 MG TABLET PO SCH (07:47)
[2021-11-29] MEDS: BENZTROPINE MESYLATE 1 MG TABLET PO SCH ×2 (07:47→16:05)
[2021-11-29] MEDS: INSULIN GLARGINE,HUM.REC.ANLOG 100 UNITS/ML SQ SCH ×2 (07:52→16:25)
[2021-11-29] MEDS: QUEtiapine FUMARATE 25 MG TABLET PO PRN ×3 (10:10→16:08)
[2021-11-29] MEDS ORDERED: ChlorproMAZINE HCL 50 MG/2 ML AMP IM ONE (11:00)
[2021-11-29] MEDS ORDERED: DiphenhydrAMINE HCL 50 MG/ML VIAL IM ONE (11:00)
[2021-11-29] MEDS ORDERED: LORazepam 2 MG/ML VIAL IM ONE (11:00)
[2021-11-29 11:41] LABS: GLUCOMETER DEV NAME(LOC) 3E.C; GLUCOSE,POINT OF CARE 252 MG/DL (70-110)
[2021-11-29 16:20] VITALS: BP 110/58
[2021-11-29 16:26] LABS: GLUCOMETER DEV NAME(LOC) 3E.C; GLUCOSE,POINT OF CARE 211 MG/DL (70-110)
[2021-11-29] MEDS: QUEtiapine FUMARATE 300 MG TABLET PO SCH (20:11)
[2021-11-29] MEDS: ZOLPIDEM TARTRATE 10 MG TABLET PO PRN (20:15)
[2021-11-29 20:41] LABS: GLUCOMETER DEV NAME(LOC) 3E.C; GLUCOSE,POINT OF CARE 234 MG/DL (70-110)
[2021-11-30] MEDS: QUEtiapine FUMARATE 25 MG TABLET PO PRN (03:20)
[2021-11-30 06:12] LABS: GLUCOMETER DEV NAME(LOC) 3E.C; GLUCOSE,POINT OF CARE 235 MG/DL (70-110)
[2021-11-30] MEDS: QUEtiapine FUMARATE 200 MG TABLET PO SCH ×3 (07:30→20:08)
[2021-11-30] MEDS: BENZTROPINE MESYLATE 1 MG TABLET PO SCH ×2 (07:30→16:15)
[2021-11-30] MEDS: LITHIUM CARBONATE 450 MG ER TABLET PO SCH ×2 (07:30→16:15)
[2021-11-30 08:00] VITALS: BP 142/87
[2021-11-30] MEDS ORDERED: LORazepam 2 MG/ML VIAL IM ONE (08:00)
[2021-11-30] MEDS ORDERED: ChlorproMAZINE HCL 50 MG/2 ML AMP IM ONE (08:00)
[2021-11-30] MEDS ORDERED: DiphenhydrAMINE HCL 50 MG/ML VIAL IM ONE (08:00)
[2021-11-30] MEDS: INSULIN GLARGINE,HUM.REC.ANLOG 100 UNITS/ML SQ SCH ×2 (08:04→16:29)
[2021-11-30 10:50] LABS: GLUCOMETER DEV NAME(LOC) 3E.C; GLUCOSE,POINT OF CARE 222 MG/DL (70-110)
[2021-11-30] MEDS: INSULIN LISPRO 100 UNITS/ML SQ PRN ×3 (12:40→20:34)
[2021-11-30 16:41] LABS: GLUCOMETER DEV NAME(LOC) 3E.C; GLUCOSE,POINT OF CARE 247 MG/DL (70-110)
[2021-11-30] MEDS: ZOLPIDEM TARTRATE 10 MG TABLET PO PRN (20:08)
[2021-11-30 20:46] LABS: GLUCOMETER DEV NAME(LOC) 3E.C; GLUCOSE,POINT OF CARE 171 MG/DL (70-110)
[2021-12-01 05:41] LABS: GLUCOMETER DEV NAME(LOC) 3E.C; GLUCOSE,POINT OF CARE 222 MG/DL (70-110)
[2021-12-01] MEDS: QUEtiapine FUMARATE 25 MG TABLET PO PRN (06:06)
[2021-12-01] MEDS: INSULIN LISPRO 100 UNITS/ML SQ PRN ×4 (06:38→20:49)
[2021-12-01 08:24] VITALS: BP 159/88
[2021-12-01 08:35] LABS: COVID AG,FIA SOURCE NASAL SWAB
[2021-12-01] MEDS: BENZTROPINE MESYLATE 1 MG TABLET PO SCH ×2 (08:48→16:52)
[2021-12-01] MEDS: QUEtiapine FUMARATE 200 MG TABLET PO SCH ×3 (08:48→20:10)
[2021-12-01] MEDS: LITHIUM CARBONATE 450 MG ER TABLET PO SCH ×2 (08:48→16:52)
[2021-12-01] MEDS: INSULIN GLARGINE,HUM.REC.ANLOG 100 UNITS/ML SQ SCH ×2 (08:54→17:00)
[2021-12-01 11:32] LABS: GLUCOMETER DEV NAME(LOC) 3E.C; GLUCOSE,POINT OF CARE 290 MG/DL (70-110)
[2021-12-01 16:26] VITALS: BP 111/56
[2021-12-01 16:46] LABS: GLUCOMETER DEV NAME(LOC) 3E.C; GLUCOSE,POINT OF CARE 258 MG/DL (70-110)
[2021-12-01] MEDS: ZOLPIDEM TARTRATE 10 MG TABLET PO PRN (20:35)
[2021-12-01 20:36] LABS: GLUCOMETER DEV NAME(LOC) 3E.C; GLUCOSE,POINT OF CARE 170 MG/DL (70-110)
[2021-12-02 06:12] LABS: GLUCOMETER DEV NAME(LOC) 3E.C; GLUCOSE,POINT OF CARE 152 MG/DL (70-110)
[2021-12-02] MEDS: INSULIN LISPRO 100 UNITS/ML SQ PRN ×3 (06:37→17:10)
[2021-12-02 08:10] VITALS: BP 128/81
[2021-12-02] MEDS: INSULIN GLARGINE,HUM.REC.ANLOG 100 UNITS/ML SQ SCH ×2 (09:00→17:00)
[2021-12-02 09:16] LABS: COVID AG,FIA SOURCE NASOPHARYNGEAL
[2021-12-02] MEDS: QUEtiapine FUMARATE 200 MG TABLET PO SCH ×3 (09:42→20:23)
[2021-12-02] MEDS: BENZTROPINE MESYLATE 1 MG TABLET PO SCH ×2 (09:42→16:24)
[2021-12-02] MEDS: LITHIUM CARBONATE 450 MG ER TABLET PO SCH ×2 (09:42→16:23)
[2021-12-02 11:41] LABS: GLUCOMETER DEV NAME(LOC) 3E.C; GLUCOSE,POINT OF CARE 329 MG/DL (70-110)
[2021-12-02] MEDS: MAG HYDROX/AL HYDROX/SIMETH ES 30 ML SUSPENSION UDCUP PO PRN (12:15)
[2021-12-02 16:11] LABS: GLUCOMETER DEV NAME(LOC) 3E.C; GLUCOSE,POINT OF CARE 252 MG/DL (70-110)
[2021-12-02 16:19] VITALS: BP 119/78
[2021-12-02 20:31] LABS: GLUCOMETER DEV NAME(LOC) 3E.C; GLUCOSE,POINT OF CARE 104 MG/DL (70-110)
[2021-12-02] MEDS: ZOLPIDEM TARTRATE 10 MG TABLET PO PRN (20:46)
[2021-12-03 06:01] LABS: GLUCOMETER DEV NAME(LOC) 3E.C; GLUCOSE,POINT OF CARE 204 MG/DL (70-110)
[2021-12-03] MEDS: INSULIN LISPRO 100 UNITS/ML SQ PRN ×4 (06:57→21:05)
[2021-12-03] MEDS: QUEtiapine FUMARATE 200 MG TABLET PO SCH ×3 (08:06→20:00)
[2021-12-03] MEDS: LITHIUM CARBONATE 450 MG ER TABLET PO SCH ×2 (08:06→16:06)
[2021-12-03] MEDS: BENZTROPINE MESYLATE 1 MG TABLET PO SCH ×2 (08:06→16:06)
[2021-12-03 08:07] VITALS: BP 156/88
[2021-12-03] MEDS: INSULIN GLARGINE,HUM.REC.ANLOG 100 UNITS/ML SQ SCH ×2 (08:36→17:00)
[2021-12-03 08:46] LABS: GLUCOMETER DEV NAME(LOC) 3E.C; GLUCOSE,POINT OF CARE 197 MG/DL (70-110)
[2021-12-03 11:21] LABS: GLUCOMETER DEV NAME(LOC) 3E.C; GLUCOSE,POINT OF CARE 245 MG/DL (70-110)
[2021-12-03 16:01] VITALS: BP 149/94
[2021-12-03 16:06] LABS: GLUCOMETER DEV NAME(LOC) 3E.C; GLUCOSE,POINT OF CARE 268 MG/DL (70-110)
[2021-12-03 20:21] LABS: GLUCOMETER DEV NAME(LOC) 3E.C; GLUCOSE,POINT OF CARE 179 MG/DL (70-110)
[2021-12-03] MEDS: ZOLPIDEM TARTRATE 10 MG TABLET PO PRN (20:24)
[2021-12-04 06:17] LABS: GLUCOMETER DEV NAME(LOC) 3E.C; GLUCOSE,POINT OF CARE 185 MG/DL (70-110)
[2021-12-04] MEDS: MAG HYDROX/AL HYDROX/SIMETH ES 30 ML SUSPENSION UDCUP PO PRN (06:21)
[2021-12-04] MEDS: INSULIN LISPRO 100 UNITS/ML SQ PRN ×4 (06:40→20:57)
[2021-12-04 08:10] VITALS: BP 170/95
[2021-12-04] MEDS: LITHIUM CARBONATE 450 MG ER TABLET PO SCH ×2 (08:38→17:33)
[2021-12-04] MEDS: QUEtiapine FUMARATE 200 MG TABLET PO SCH ×3 (08:38→20:47)
[2021-12-04] MEDS: BENZTROPINE MESYLATE 1 MG TABLET PO SCH ×2 (08:38→16:15)
[2021-12-04] MEDS: INSULIN GLARGINE,HUM.REC.ANLOG 100 UNITS/ML SQ SCH ×2 (08:50→16:26)
[2021-12-04] MEDS: ONDANSETRON HCL 4 MG TABLET PO PRN (09:38)
[2021-12-04 12:11] LABS: GLUCOMETER DEV NAME(LOC) 3E.C; GLUCOSE,POINT OF CARE 233 MG/DL (70-110)
[2021-12-04 12:58] LABS: COVID AG,FIA SOURCE NASAL SWAB
[2021-12-04 16:02] VITALS: BP 132/76
[2021-12-04 16:36] LABS: GLUCOMETER DEV NAME(LOC) 3E.C; GLUCOSE,POINT OF CARE 266 MG/DL (70-110)
[2021-12-04] MEDS: ZOLPIDEM TARTRATE 10 MG TABLET PO PRN (20:46)
[2021-12-04 21:31] LABS: GLUCOMETER DEV NAME(LOC) 3E.C; GLUCOSE,POINT OF CARE 234 MG/DL (70-110)
[2021-12-05 05:51] LABS: GLUCOMETER DEV NAME(LOC) 3E.C; GLUCOSE,POINT OF CARE 184 MG/DL (70-110)
[2021-12-05] MEDS: INSULIN LISPRO 100 UNITS/ML SQ PRN ×4 (06:42→21:10)
[2021-12-05] MEDS: QUEtiapine FUMARATE 200 MG TABLET PO SCH ×3 (08:49→20:34)
[2021-12-05] MEDS: LITHIUM CARBONATE 450 MG ER TABLET PO SCH ×2 (08:49→16:29)
[2021-12-05] MEDS: BENZTROPINE MESYLATE 1 MG TABLET PO SCH ×2 (08:49→16:30)
[2021-12-05] MEDS: INSULIN GLARGINE,HUM.REC.ANLOG 100 UNITS/ML SQ SCH ×2 (09:00→16:36)
[2021-12-05 09:03] VITALS: BP 143/78
[2021-12-05 12:57] LABS: GLUCOMETER DEV NAME(LOC) 3E.C; GLUCOSE,POINT OF CARE 236 MG/DL (70-110)
[2021-12-05 16:41] LABS: GLUCOMETER DEV NAME(LOC) 3E.C; GLUCOSE,POINT OF CARE 175 MG/DL (70-110)
[2021-12-05] MEDS: ZOLPIDEM TARTRATE 10 MG TABLET PO PRN (20:34)
[2021-12-05 20:51] LABS: GLUCOMETER DEV NAME(LOC) 3E.C; GLUCOSE,POINT OF CARE 270 MG/DL (70-110)
[2021-12-06 06:40] LABS: GLUCOMETER DEV NAME(LOC) 3E.C; GLUCOSE,POINT OF CARE 185 MG/DL (70-110)
[2021-12-06] MEDS: INSULIN LISPRO 100 UNITS/ML SQ PRN ×4 (06:44→20:53)
[2021-12-06] MEDS: QUEtiapine FUMARATE 25 MG TABLET PO PRN (07:39)
[2021-12-06] MEDS: ONDANSETRON HCL 4 MG TABLET PO PRN (08:39)
[2021-12-06 08:51] LABS: GLUCOMETER DEV NAME(LOC) 3E.C; GLUCOSE,POINT OF CARE 229 MG/DL (70-110)
[2021-12-06] MEDS: INSULIN GLARGINE,HUM.REC.ANLOG 100 UNITS/ML SQ SCH ×2 (10:23→16:53)
[2021-12-06] MEDS: QUEtiapine FUMARATE 200 MG TABLET PO SCH ×3 (10:25→20:52)
[2021-12-06] MEDS: LITHIUM CARBONATE 450 MG ER TABLET PO SCH ×2 (10:25→16:52)
[2021-12-06] MEDS: BENZTROPINE MESYLATE 1 MG TABLET PO SCH ×2 (10:25→16:52)
[2021-12-06 11:56] LABS: GLUCOMETER DEV NAME(LOC) 3E.C; GLUCOSE,POINT OF CARE 180 MG/DL (70-110)
[2021-12-06 16:27] VITALS: BP 132/79
[2021-12-06 16:56] LABS: GLUCOMETER DEV NAME(LOC) 3E.C; GLUCOSE,POINT OF CARE 179 MG/DL (70-110)
[2021-12-06 20:51] LABS: GLUCOMETER DEV NAME(LOC) 3E.C; GLUCOSE,POINT OF CARE 142 MG/DL (70-110)
[2021-12-07 06:41] LABS: GLUCOMETER DEV NAME(LOC) 3E.C; GLUCOSE,POINT OF CARE 185 MG/DL (70-110)
[2021-12-07] MEDS: INSULIN LISPRO 100 UNITS/ML SQ PRN ×4 (06:42→20:32)
[2021-12-07] MEDS: INSULIN GLARGINE,HUM.REC.ANLOG 100 UNITS/ML SQ SCH ×2 (08:14→16:49)
[2021-12-07] MEDS: QUEtiapine FUMARATE 200 MG TABLET PO SCH ×3 (08:14→20:27)
[2021-12-07] MEDS: BENZTROPINE MESYLATE 1 MG TABLET PO SCH ×2 (08:15→16:39)
[2021-12-07] MEDS: LITHIUM CARBONATE 450 MG ER TABLET PO SCH ×2 (08:15→16:39)
[2021-12-07 11:31] LABS: GLUCOMETER DEV NAME(LOC) 3E.C; GLUCOSE,POINT OF CARE 226 MG/DL (70-110)
[2021-12-07 16:16] VITALS: BP 138/79
[2021-12-07 16:41] LABS: GLUCOMETER DEV NAME(LOC) 3E.C; GLUCOSE,POINT OF CARE 156 MG/DL (70-110)
[2021-12-07 20:32] LABS: GLUCOMETER DEV NAME(LOC) 3E.C; GLUCOSE,POINT OF CARE 141 MG/DL (70-110)
[2021-12-07] MEDS: ZOLPIDEM TARTRATE 10 MG TABLET PO PRN (20:45)
[2021-12-08 06:26] LABS: GLUCOMETER DEV NAME(LOC) 3E.C; GLUCOSE,POINT OF CARE 141 MG/DL (70-110)
[2021-12-08] MEDS: INSULIN LISPRO 100 UNITS/ML SQ PRN ×2 (06:59→12:07)
[2021-12-08 08:19] VITALS: BP 137/79
[2021-12-08] MEDS: LITHIUM CARBONATE 450 MG ER TABLET PO SCH (09:53)
[2021-12-08] MEDS: BENZTROPINE MESYLATE 1 MG TABLET PO SCH (09:54)
[2021-12-08] MEDS: QUEtiapine FUMARATE 200 MG TABLET PO SCH (09:54)
[2021-12-08] MEDS: INSULIN GLARGINE,HUM.REC.ANLOG 100 UNITS/ML SQ SCH (10:02)
[2021-12-08 11:21] LABS: GLUCOMETER DEV NAME(LOC) 3E.C; GLUCOSE,POINT OF CARE 198 MG/DL (70-110)
[2021-12-08] MEDS ORDERED: BENZ1TAB96 PO (13:33)
[2021-12-08] MEDS ORDERED: LITH450CRT PO (13:33)
[2021-12-08] MEDS ORDERED: QUET200T30 PO ×2 (13:33)
[2021-12-10] MEDS ORDERED: INSLAN SQ (06:32)
== END 2021-12-08 15:10 | disposition home or self-care (01) | DRG 885 ==
LOC: EMS 16:53 → 3EX 22:42 → 3EC 23:27
PROVIDERS: ADMIT Psychiatry & Neurology Child & Adolescent Psychiatry; ATTEND Psychiatry & Neurology Child & Adolescent Psychiatry
DX: F25.0 Schizoaffective disorder, bipolar type (principal); E11.65 Type 2 diabetes mellitus with hyperglycemia; K59.00 Constipation, unspecified; Z59.00 Homelessness unspecified; F17.200 Nicotine dependence, unspecified, uncomplicated; F41.9 Anxiety disorder, unspecified; D64.9 Anemia, unspecified; Z20.822 Contact with and (suspected) exposure to COVID-19; Z71.6 Tobacco abuse counseling; Z88.8 Allergy status to other drugs, medicaments and biological substances; Z79.4 Long term (current) use of insulin
CPT/HCPCS: 80053; 80061; 80178; 82962; 83036; 85025; 87081; 99285; G0378; G0480; J1200; J1630; J1815; J2060; J3230; Q0162